=== PATIENT | male | born 1935 | race Caucasian/White ===

== ENCOUNTER 2019-12-13 10:51 | Emergency (ER) | payer OTHER ==
[~2019-12-13] VITALS: Ht 167.6 cm; Wt 70.3 kg
[2019-12-13 11:21] VITALS: Ht 167.6 cm; Wt 70.3 kg
[2019-12-13 12:37] LABS: BASOPHIL % 1.2 % (0-2); RED CELL DISTRIBUTION WIDTH 14.2 % (11.5-14.5)
[2019-12-13 13:02] LABS: T3 TOTAL 0.76 ng/mL
[2019-12-13 13:16] LABS: PLATELET COUNT 458 x10^3mcL (130-400)
[2019-12-13 13:37] LABS: ALBUMIN 2.9 g/dL (3.4-5.0); ALKALINE PHOSPHATASE 113 U/L (46-116); ALT/SGPT 33 U/L (16-63); AST/SGOT 25 U/L (15-37); BILIRUBIN TOTAL 0.6 mg/dL (0.20-1.00); CALCIUM 9.6 mg/dL (8.5-10.1); CARBON DIOXIDE 24.5 mmol/L (21-32); CHLORIDE SERUM 103 mmol/L (98-107); CHOLESTEROL 114 mg/dL (<200); CREATININE SERUM 1.3 mg/dL (0.7-1.3); GLUCOSE SERUM 122 mg/dL (74-106); MAGNESIUM 2.1 mg/dL (1.8-2.4); POTASSIUM SERUM 4.4 mmol/L (3.5-5.1); SODIUM SERUM 136 mmol/L (136-145); TOTAL PROTEIN, SERUM 8.5 g/dL (6.4-8.2)
[2019-12-13 13:38] LABS: HDL CHOLESTEROL 35 mg/dL (40-60)
[2019-12-13 13:39] LABS: FREE T4 1.09 ng/dL (0.76-1.46)
[2019-12-13 15:17] LABS: FREE THYROXINE INDEX 2.6 ug/dL (1.4-4.5); T4(THYROXINE) 7.6 ug/dL (4.7-13.3)
[2019-12-13 15:44] VITALS: BP 111/63
== END 2019-12-13 15:44 | disposition home or self-care (01) ==
LOC: ED 10:51
PROVIDERS: Emergency Medicine
DX: R53.1 Weakness (principal); M65.231 Calcific tendinitis, right forearm; I10 Essential (primary) hypertension; E11.9 Type 2 diabetes mellitus without complications; Z98.890 Other specified postprocedural states
CPT/HCPCS: 36415; 84439; J7030; Q0092

== ENCOUNTER 2020-01-29 10:12 | Observation (INO) | payer OTHER ==
[~2020-01-29] VITALS: Ht 170.2 cm; Wt 77.1 kg
[2020-01-29 10:15] VITALS: Ht 170.2 cm; Wt 77.1 kg
[2020-01-29 10:59] LABS: CALCIUM 8.1 mg/dL (8.5-10.1); CHLORIDE SERUM 105 mmol/L (98-107); CREATININE SERUM 1.1 mg/dL (0.7-1.3); GLUCOSE SERUM 128 mg/dL (74-106); POTASSIUM SERUM 4.4 mmol/L (3.5-5.1); SODIUM SERUM 138 mmol/L (136-145)
[2020-01-29 11:02] LABS: BASOPHIL % 0.4 % (0-2); PLATELET COUNT 309 x10^3mcL (130-400)
[2020-01-29 11:03] LABS: ALBUMIN 2.5 g/dL (3.4-5.0); ALKALINE PHOSPHATASE 84 U/L (46-116); ALT/SGPT 18 U/L (16-63); AST/SGOT 18 U/L (15-37); BILIRUBIN TOTAL 0.6 mg/dL (0.20-1.00); TOTAL PROTEIN, SERUM 7.2 g/dL (6.4-8.2)
[2020-01-29 11:05] LABS: RED CELL DISTRIBUTION WIDTH 15.1 % (11.5-14.5)
[2020-01-29] MEDS ORDERED: AMMONIUM LACTATE121 (13:10)
[2020-01-29] MEDS ORDERED: FORTAMET500 M1 (13:10)
[2020-01-29] MEDS ORDERED: ZESTRIL2.5 MG (13:10)
[2020-01-29] MEDS ORDERED: CARVEDILOL ER40 MG (13:10)
[2020-01-29] MEDS ORDERED: ISOSORBIDE DINI30 M2 (13:11)
[2020-01-29] MEDS ORDERED: GRALISE600 MG (13:11)
[2020-01-29] MEDS ORDERED: BAYER ASPIRIN R81 MG (13:11)
[2020-01-29] MEDS ORDERED: VITAMIN D3400 I1 (13:12)
[2020-01-29] MEDS ORDERED: SIMVASTATIN5 M2 (13:12)
[2020-01-29 14:02] LABS: microscopic required? YES; urine erythrocyte TRACE (NEGATIVE)
[2020-01-29 16:51] LABS: FREE T4 0.93 ng/dL (0.76-1.46); FREE THYROXINE INDEX 1.9 ug/dL (1.4-4.5); T4(THYROXINE) 5.4 ug/dL (4.7-13.3)
[2020-01-29 17:03] LABS: T3 TOTAL 0.89 ng/mL
[2020-01-29 17:47] VITALS: BP 160/74
[2020-01-29 20:40] VITALS: BP 128/60
[2020-01-30 05:55] VITALS: BP 129/81
[2020-01-30 06:31] LABS: BASOPHIL % 0.7 % (0-2); PLATELET COUNT 318 x10^3mcL (130-400)
[2020-01-30 07:02] LABS: CARBON DIOXIDE 24.8 mmol/L (21-32); CHLORIDE SERUM 107 mmol/L (98-107); CREATININE SERUM 0.9 mg/dL (0.7-1.3); GLUCOSE SERUM 98 mg/dL (74-106); POTASSIUM SERUM 4.2 mmol/L (3.5-5.1); SODIUM SERUM 142 mmol/L (136-145)
[2020-01-30 07:11] LABS: CALCIUM 8.8 mg/dL (8.5-10.1)
[2020-01-30 07:32] LABS: RED CELL DISTRIBUTION WIDTH 15.5 % (11.5-14.5)
[2020-01-30 07:56] VITALS: BP 152/71
[2020-01-30 12:23] VITALS: BP 147/75
[2020-01-30 12:59] VITALS: BP 147/75
== END 2020-01-30 14:44 | disposition home or self-care (01) ==
LOC: ED 10:12 → DU 15:53
PROVIDERS: Emergency Medicine; ADMIT Internal Medicine
DX: R55 Syncope and collapse (principal); I10 Essential (primary) hypertension; E11.9 Type 2 diabetes mellitus without complications; I25.10 Atherosclerotic heart disease of native coronary artery without angina pectoris; Z95.1 Presence of aortocoronary bypass graft
CPT/HCPCS: 84439; 97116-GP; G0378; J1644; J7030; Q0092